=== PATIENT | male | born 1950 | race Caucasian/White ===

== ENCOUNTER 2018-06-20 12:25 | Inpatient (IN) | payer BC, OTHER ==
[~2018-06-20] VITALS: Ht 175.3 cm; Wt 59.0 kg
[2018-06-20] MEDS ORDERED: IRBE1TAB41 PO (13:37)
[2018-06-20] MEDS ORDERED: FINA1TAB PO (13:38)
[2018-06-20] MEDS ORDERED: SILD100T PO (13:39)
[2018-06-20] MEDS ORDERED: VALA500T34 PO (13:51)
[2018-06-20] MEDS ORDERED: METR45CR2 TP (13:52)
[2018-06-20] MEDS ORDERED: MULT1TAB73 PO (13:53)
[2018-06-20] MEDS ORDERED: BETA15CR4 TP (13:54)
[2018-06-20] MEDS ORDERED: ACET-73 PO (13:55)
--- NOTE | 2018-06-20 14:30 | NUR ---
Pre-admission note: assessed pt in intake office pt accompanied by family is the main source of information. pt appears to be moderately withdrawing.pt's partner Ani verbalized he is not telling you all the information in regards to admission assessment. pt with increased hr of 101 and b/p of 159/96. explained unit protocols and procedures and pt verbalized understanding.
[2018-06-20] MEDS ORDERED: THIAMINE HCL 200 MG/2 ML VIAL IM ONE (15:00)
[2018-06-20] MEDS ORDERED: DIAZEPAM 5 MG TABLET PO PRN (15:00)
[2018-06-20] MEDS ORDERED: LORAZEPAM 2 MG/1 ML VIAL IM PRN (15:00)
[2018-06-20] MEDS ORDERED: MAGNESIUM HYDROXIDE 30 ML LIQUID UDC PO PRN (15:00)
[2018-06-20] MEDS ORDERED: ONDANSETRON 4 MG/2 ML VIAL IM PRN (15:00)
[2018-06-20] MEDS ORDERED: DIAZEPAM 10 MG TABLET PO PRN ×2 (15:00)
[2018-06-20] MEDS ORDERED: ACETAMINOPHEN 325 MG TABLET PO PRN (15:00)
[2018-06-20] MEDS ORDERED: LOPERAMIDE HCL 2 MG CAPSULE PO PRN ×2 (15:00)
[2018-06-20] MEDS ORDERED: MAG HYDROX/AL HYDROX/SIMETH 30 ML LIQUID UDC PO PRN (15:00)
[2018-06-20] MEDS ORDERED: ONDANSETRON ODT 4 MG TAB.RAPDIS SL PRN (15:00)
--- NOTE | 2018-06-20 15:00 | NUR ---
ADMISSION Patient arrived to the unit at 1342, admitting DX: Etoh/BZO withdrawal. Patient was seen at intake office by Charge Nurse, RN at 1320. Patient body search and body assessment completed. 68 year old male arrived to the unit, orientation to unit and to room provided, education sculpture conservator light use was provided. Patient appears disheveled, and unkempt. Noted with flushed face and clammy skin. Appears fidgety, restless, tremulous and anxious. Has a flat affect, poor eye contact. Has anxious mood. Patient is alert and oriented x4. Patient reports here to detox off of alcohol, has been consuming on a daily basis and unable to quit on his own, per patient reports in the past when he has tried he experiences: increase cravings, anxiety, shaking, and agitation, fatigue, and emotional volatility, Patient denies any history of alcohol withdrawal induced seizure. Denies having experiencing any black outs, but as per family members during pre admission, Clifford (bother) and Ani (partner) verbalized he has experienced many blackouts. Patient denied any episodes of suicide ideations/attempt, but as per Ani (partner) approximately 2-3 months ago, patient tried to jump off a building Partner was asked if any medical attention was sought, per Ani, they did not seek any medical or psychiatric help. Patient is currently denying any Suicide ideations at this time, will continue to monitor closely. Patient verbalized I mostly drink to be social, I never drink alone, patient reports he began drinking because of peer pressure, hanging around with my friends when he was in his twenties. Patient reports was able to stop drinking in the beginning but after that it become a problem to stop on his own, reports that for many years he has been drinking about 4-5 times a week about 5 mixed vodka drinks equivalent to 225ml of vodka. Patient reports he decided to get sober today because his brother and boyfriend encouraged him to do it, and he decided that it was time for him to quit drinking, verbalized its been in the plan, I want to be sober Patient reports stopping on his own is tough because I get a lot of cravings, I cant do it on my own, sometimes when I wake up I do notice my hands get shaky, I feel anxious and agitated Patient reports that when he has attempted to get sober on his own in the past he is unable to because of high levels of stress and cravings. Reports his family and partner are a great support system for him. Reports that drinking has caused a strain in the relationship with his partner because he does not like the fact that he drinks, since his partner does not drink. Reports it has caused many issues. Verbalized I get sad and unhappy at my life because I drink alcohol. Patient reports he has attempted to get sober on his own by going to , was able to stay sober for 1.5 years, approximately two years ago, but then relapsed. Patient reports he has attempted to get sober on his own, approximately twice, but relapses again, verbalized I am ready to do this; I am ready to be happy and live a happy life. After detox patient reports he plans to attend a residential treatment, plans on going to meetings, verbalized that he is willing to not drink alcohol any more to maintain his sobriety. Patient reports this is his first time in treatment. Substance Use history: 1. etoh- vodka (5 mixed drinks) equivalent to: 225ml daily for the past 6 months, but reports he has been drinking approximately on/off for years 225ml of vodka approximately 3-4x/week. Last drink 06/20/2018 45ml at 0930. (Per Isamar, patients partner: Patient is drinking way more, than what he is reporting) MD notified. 2. BZO- Klonopin 2 mg PO HS for sleep. Per patient has been taking for the past year, last took 2mg on 06/19/2018 prior to bed time. PMH/Medications: Insomnia diagnosed 2017- Patient takes: Klonopin 2mg PO QHS. Hypertension diagnosed: in 2016 Patient takes: Irbesartan/Hctz 300-12.5mg one tab daily. Anxiety diagnosed: in 2017 Erectile Dysfunction- Patient takes Sildenafil 100mg PO PRN. Facial Rosacea- patient takes metronidazole cream as needed. On/off chest redness/irritation- Patient uses bethametason diproprionate (currently no active redness/irritation) Hair Loss- Patient takes Finasteride 1 tab daily. On/Off generalized body rash- Valtrex 2 tabs daily. (Currently no active body rash) Past surgical history: Wrist fracture 20 years ago. Skin Integrity: Patient skin noted with 14 stitches on left elbow area, appears intact, no gapping noted no s/sx of bleeding/infx noted. Per patient during moving from one house to another, he reports he fell off of a ladder, per patient denies being intoxicated when the accident occurred, but was drinking the night before. Per patient stitches to be removed Saturday. Currently patient in room, Dr. Yu was notified of new admission, patient seen and examined by Dr. Yu and was seen and examined by Dr. morrison. Patient presenting the following s/sx of withdrawal: generalized discomfort, increase emotional amplitude, increase anxiety, and tremors, patient with admitting ciwa score of: 8. Patients safety measures are in place. Call light within reach, fall and seizure precautions in place. Bed in low position, will continue to monitor closely. Addendum: 06/20/18 at 1835 by LICHA HUGHES LVN Admitting vital signs: bp: 159/91 hr: 101 r: 18 t: 98.6 o2sat: 97% room air. 0/10 pain level.
[2018-06-20 15:04] LABS: *AMPHETAMINE, URINE NEGATIVE (NEGATIVE); *BARBITURATE, URINE NEGATIVE (NEGATIVE); *CANNABINOID, URINE NEGATIVE (NEGATIVE); *COCCAINE, URINE NEGATIVE (NEGATIVE); *OPIATE, URINE NEGATIVE (NEGATIVE); *PHENCYCLIDINE SCREEN,URINE NEGATIVE (NEGATIVE)
--- NOTE | 2018-06-20 15:30 | NUR ---
Admission Orders Per Dr. Yu, patient to continue under close observation. patient has PRN Valium as needed for s/sx of withdrawal. Patient to begin a 5 day Valium taper tomorrow morning.
[2018-06-20 15:40] LABS: BASOPHILS % (AUTO) 0.3 % (0.0-2.0); EOSINOPHILS % (AUTO) 0.5 % (0.0-7.0); HEMOGLOBIN 13.4 g/dL (12.5-16.3); LYMPHOCYTES % (AUTO) 16.5 % (20.5-51.5); MEAN CORPUSCULAR HEMOGLOBIN 36.9 uug (23.8-33.4); MEAN CORPUSCULAR HGB CONC 34 g/dL (32.5-36.3); MEAN CORPUSCULAR VOLUME 107.1 fL (73.0-96.2); MONOCYTES % (AUTO) 16.5 % (0.0-11.0); NEUTROPHILS # (AUTO) 3.9 K/uL (1.8-8.9); NEUTROPHILS % (AUTO) 66.2 % (38.5-71.5); PLATELET COUNT (AUTO) 227 K/uL (152-348); RED BLOOD CELL COUNT(AUTO) 3.64 MIL/uL (4.06-5.63); WHITE BLOOD COUNT (AUTO) 5.9 K/uL (3.6-10.2)
[2018-06-20 15:55] LABS: ALANINE AMINOTRANSFERASE 94 U/L (16-63); ALKALINE PHOSPHATASE 69 U/L (50-136); AMYLASE 63 U/L (25-115); ASPARTATE AMINOTRANSFERASE 87 U/L (15-37); BILIRUBIN,TOTAL 0.7 mg/dL (0.2-1.0); CARBON DIOXIDE 27 mmol/L (21-32); CHLORIDE 100 mmol/L (98-107); CREATININE 0.8 mg/dL (0.6-1.3); GLUCOSE 96 mg/dL (74-106); LIPASE 132 U/L (73-393); MAGNESIUM 1.8 mg/dL (1.8-2.4); POTASSIUM 4.5 mmol/L (3.5-5.1); TOTAL PROTEIN, SERUM 7.7 g/dL (6.4-8.2); UREA NITROGEN, BLOOD 15 mg/dL (7-18)
[2018-06-20 16:06] LABS: ETHANOL < 3 MG/DL (0-0)
[2018-06-20 16:35] VITALS: BP 158/90
--- NOTE | 2018-06-20 16:37 | NUR ---
PRN VALIUM Patient presenting the following s/sx of withdrawal: generalized discomfort, increase emotional amplitude, increase anxiety, and tremors, patient with admitting ciwa score of: 8, Administered Valium 5 mg PO as per MD orders. Will monitor effectiveness of medication, current vital signs BP: 158/90 HR: 98 T: 98.4 R: 16 O2 SAT: 97% RA.
--- NOTE | 2018-06-20 17:37 | NUR ---
VALIUM REASSESSMENT Patient reports feeling less tremulous and a decrease in anxiety, current ciwa score of: 6, encouraged patient to increase PO fluid intake as tolerated, will continue to monitor.
[2018-06-20 18:27] LABS: BAND % (MANUAL) 4 % (0-10); LYMPHOCYTES % (MANUAL) 16 % (20-40); MONOCYTES % (MANUAL) 16 % (2-10); NEUTROPHILS % (MANUAL) 64 % (42-75)
--- NOTE | 2018-06-20 19:10 | NUR ---
END OF SHIFT Patient endorsed to shift production supervisor nurse, all pertinent information was discussed. patient admitted today during shift, continues under close observation. patient received PRN Valium 5 mg PO for ciwa score of: 8, current ciwa score of: 6.
--- NOTE | 2018-06-20 19:30 | NUR ---
START OF SHIFT Pt is a 68 y/o male admitted on 06/20/18 for ETOH and benzo withdrawal. Pt has PRN Valium tonight and 5 day Valium taper that starts tomorrow. Last CIWA 6 and PRN Valium 5 mg administered during day shift. Upon assessment pt presents with anxiety, tremors, worried, flushed skin, flat affect, rapid speech, restlessness, elevated BP, difficulty falling and staying asleep, and is fearful about being able to sleep. Medications due. Safety measures in place. Call light within reach. Will continue to monitor.
[2018-06-20 20:00] VITALS: BP 172/102
--- NOTE | 2018-06-20 20:00 | NUR ---
CIWA 12 Pt presents with anxiety, tremors, worried, flushed skin, flat affect, rapid speech, restlessness, elevated BP, difficulty falling and staying asleep, and is fearful about being able to sleep.
[2018-06-20] MEDS: CLONIDINE HCL 0.1 MG TABLET PO PRN (20:21)
--- NOTE | 2018-06-20 20:21 | NUR ---
PRN CLONIDINE ADMINISTRATION BP 172/102 and HR 72, orders to give Clonidine. Pt presents with anxiety. Safety measures in place. Call light within reach. Will continue to monitor.
[2018-06-20] MEDS ORDERED: METRONIDAZOLE TOP SCH (21:00)
[2018-06-20 21:21] VITALS: BP 136/87
--- NOTE | 2018-06-20 21:21 | NUR ---
PRN CLONIDINE REASSESSMENT BP 136/87 and HR 74. Pt has persistent anxiety r/t worrying about not being able to sleep. Safety measure in place. Call light within reach. Will continue to monitor.
[2018-06-20] MEDS: TRAZODONE 100 MG TABLET PO PRN (21:48)
--- NOTE | 2018-06-20 21:48 | NUR ---
PRN VALIUM AND TRAZODONE ADMINISTRATION CIWA 13. Pt presents with anxiety, restlessness, flushed skin, tremors. Pt requests Trazodone for difficulty falling and staying asleep. Safety measures in place. Call light within reach. Will continue to monitor.
--- NOTE | 2018-06-20 22:48 | NUR ---
PRN VALIUM AND TRAZODONE REASSESSMENT CIWA 11. Pt has mild improvement in restlessness. Pt appears more fatigued and relaxed. Safety measures in place. Call light within reach. Will continue to monitor.
[2018-06-21] VITALS: BP 146/93
--- NOTE | 2018-06-21 | NUR ---
CIWA DEFERRED Pt laying in bed with eyes closed, CIWA deferred, to be assessed when pt is awake per orders. Respirations even and unlabored. Safety measures in place. Call light within reach. Will continue to monitor.
[2018-06-21 04:00] VITALS: BP 148/94
--- NOTE | 2018-06-21 07:07 | NUR ---
END OF SHIFT Pt is a 68 y/o male admitted on 06/20/18 for ETOH and benzo withdrawal. Pt has PRN Valium and starts a 5 day Valium taper today. Pt presented with anxiety, tremors, worry affect, flushed skin, flat affect, rapid speech, restlessness, elevated BP, difficulty falling and staying asleep, and is fearful about being able to sleep. Metronidazole gel for face at 2100 refused, pt stated, "I usually take that in the morning." Scheduled medications and PRN Valium 10 mg, Trazodone 100 mg, and Clonidine administered, effective in S/S of withdrawal AEB CIWA 13 lowered to CIWA 11 during shift. Pt slept 6 hours. Intake 1591 ml, void x 2, stool x 1. Safety measures in place. Call light within reach. Pts needs have been met. Endorsed to day shift nurse.
--- NOTE | 2018-06-21 07:38 | NUR ---
BEGINNING OF SHIFT Patient endorsement report received from family resource management professor nurse, all pertinent information was discussed. Patient admitted yesterday with admitting dx: etoh withdrawal. patient continues under close observation and is scheduled to begin a 5 day Valium taper as ordered. Per family resource management professor patient with poor sleep and difficulty staying asleep. As per family resource management professor patient slept for 6 hours. Patient with last CIWA score of: 11. Received PRN: Trazodone, and Valium, per family resource management professor medications effective. Patient currently in room with eyes closed respirations are even and unlabored. Responsive to verbal stimuli. Will educate patient regarding plan of care for the day and medication regimen. Safety measures are in place. call light with in reach, will continue to monitor.
[2018-06-21 08:21] VITALS: BP 134/94
[2018-06-21] MEDS ORDERED: Medication Not On Formulary EA (Irbesartan/Hydrochlorothiazide (Avalide 150-12.5 Mg Tabl PO SCH (09:00)
[2018-06-21] MEDS ORDERED: VALACYCLOVIR HCL 500 MG TABLET PO SCH (09:00)
[2018-06-21] MEDS ORDERED: FINASTERIDE PO SCH (09:00)
[2018-06-21] MEDS ORDERED: 5 DAY TAPER VALIUM-SERENITY PROTOCOL PO PRN (09:00)
[2018-06-21] MEDS ORDERED: Medication Not On Formulary EA (Multivitamins (Multivitamin) 1 TAB) PO SCH (09:00)
[2018-06-21] MEDS ORDERED: TUBERCULIN,PURIF.PROT.DERIV. 5 TU/0.1 ML TEST ID ONE (09:00)
--- NOTE | 2018-06-21 09:00 | NUR ---
CIWA ASSESSMENT Noted presented with the following s/sx of withdrawal: gross tremors, increase anxiety, agitation, fidgety, restless, generalized discomfort, increase emotional amplitude and emotional volatitily, patient with last CIWA score of: 15.
[2018-06-21] MEDS: FOLIC ACID 1 MG TABLET PO SCH (09:08)
[2018-06-21] MEDS: MULTIVITAMINS,THERAPEUTIC TABLET PO SCH (09:08)
[2018-06-21] MEDS: THIAMINE HCL 100 MG TABLET PO SCH (09:08)
[2018-06-21] MEDS: DIAZEPAM 10 MG TABLET PO SCH ×4 (09:08→21:42)
[2018-06-21] MEDS: HYDROCHLOROTHIAZIDE PO SCH (09:09)
[2018-06-21] MEDS: FINASTERIDE 1 MG PO SCH (09:09)
[2018-06-21] MEDS: NEOMY/BACITRAC/POLYMI OINT 28.35 GM TUBE TOP SCH (09:09)
[2018-06-21] MEDS: IRBESARTAN PO SCH (09:09)
--- NOTE | 2018-06-21 13:00 | NUR ---
CIWA ASSESSMENT Patient continues to exhibit the following s/sx of withdrawal: gross tremors, increase anxiety, agitation, fidgety, restless, generalized discomfort, increase emotional amplitude and emotional volatitily, patient with last CIWA score of: 15.
[2018-06-21 13:17] VITALS: BP 168/107
[2018-06-21] MEDS: CLONIDINE HCL 0.1 MG TABLET PO PRN ×2 (13:19→20:51)
[2018-06-21] MEDS: MIRALAX 17 GM POWD.PACK PO PRN (13:30)
--- NOTE | 2018-06-21 13:30 | NUR ---
PRN MIRALAX Patient reported constipation, administered miralax as ordered, will monitor effectiveness of medication.
--- NOTE | 2018-06-21 14:19 | NUR ---
CLONIDINE REASSESSMENT Medication effective, decrease in BP, BP: 148/88 HR: 82. Will continue to monitor.
--- NOTE | 2018-06-21 17:00 | NUR ---
CIWA ASSESSMENT still presenting with the following s/sx of withdrawal: gross tremors, increase anxiety, agitation, fidgety, restless, generalized discomfort, increase emotional amplitude and emotional volatitily, patient with last CIWA score of: 15. Will continue to monitor.
[2018-06-21 17:11] VITALS: BP 146/89
--- NOTE | 2018-06-21 17:14 | NUR ---
PRN CLONIDINE Patient with BP: 168/107 HR: 74. Administered clonidine 0.1mg PO as ordered, will monitor effectiveness. Addendum: 06/21/18 at 1741 by LICHA HUGHES LVN medication administered at 1319
--- NOTE | 2018-06-21 17:43 | NUR ---
MIRALAX REASSESSMENT Medication effective, patient had one bowel movement.
--- NOTE | 2018-06-21 18:44 | NUR ---
END OF SHIFT 308 Patient alert and oriented x4, continues under close observation, patient with admitting Dx: etoh/bzo withdrawal. Patient began a 5 day Valium taper during shift, day 1 of taper. Monitored s/sx of withdrawal closely. During shift patient presented with the following s/sx of withdrawal: gross tremors, increase anxiety, agitation, fidgety, restless, generalized discomfort, increase emotional amplitude and emotional volatility, patient with last CIWA score of: 15, MD aware of CIWA scores throughout shift. Patient received PRN: Miralax for constipation, medication effective patient had bowel movement. Patient noted with depressed affect and anxious mood. Patient encouraged diversional activities to alleviate anxiety. Patient has a flat affect at times, noted preoccupied, encouraged to attend group therapies/sessions to learn new coping skills to prevent relapse. Encouraged to socialize with others. Patient with inability to perform ADLs without prompting, Patient encouraged maintenance of personal space and self grooming. Patient endorsed to night nurse nurse, all pertinent information was discussed
--- NOTE | 2018-06-21 19:46 | NUR ---
START OF SHIFT NOTE Rcvd report from outgoing nurse. Pt is a 68 y/o male A/O to person, place, time, and purpose. Pt was admitted for medically supervised withdrawal from ETOH. Pt has a past medical h/o HTN. Pt has been presenting w/ anxiety, restlessness, sweats, flat affect, and depressed mood. Pt denies S/I or H/I. Pt states "I'm feeling great and ready for the next step". PRN Clonidine given for elevated BP of 166/106. PRN Miralax given for abd cramping and constipation. Last CIWA 15 @ 1600. Call light is within reach. Pt will ontinue to be monitored and needs met.
[2018-06-21 20:00] VITALS: BP 166/102
--- NOTE | 2018-06-21 20:00 | NUR ---
CIWA ASSESSMENT CIWA 13. Pt has been presenting w/ anxiety, restlessness, sweats, flat affect, and depressed mood. V/S: T:98.7, P:70, RR:14, SPO2:100, BP:166/72.
--- NOTE | 2018-06-21 20:51 | NUR ---
PRN CLONIDINE ADMINISTRATION Clonidine 0.1mg given for elevated BP of 166/102. Pt denies light headedness/dizziness, vision changes, and SOB. Will reassess pt in 1 hr.
[2018-06-21] MEDS: TRAZODONE 100 MG TABLET PO PRN (21:41)
--- NOTE | 2018-06-21 21:41 | NUR ---
PRN TRAZODONE AND BENADRYL ADMINISTRATION Trazodone 100mg and Benadryl 50mg given for insomnia. Pt c/o of inability to sleep. Will reassess pt in 1 hr.
[2018-06-21] MEDS: diphenhydrAMINE 50 MG CAPSULE PO PRN (21:42)
--- NOTE | 2018-06-21 21:51 | NUR ---
PRN CLONIDINE REASSESSMENT Pt's BP 142/94. Medication noted effective. Will continue to monitor pt.
[2018-06-21] MEDS: IBUPROFEN 600 MG TABLET PO PRN (22:33)
--- NOTE | 2018-06-21 22:33 | NUR ---
PRN MOTRIN ADMINISTRATION Motrin 600mg given for 5/10 back pain. Pt states the bed is very uncomfortable, "I've tried moving it into different positions, with the legs and the head of the bed, nothing works". Will reassess pt in 1 hr.
--- NOTE | 2018-06-21 22:41 | NUR ---
PRN TRAZODONE AND BENADRYL REASSESSMENT Pt in bed and respirations are unlabored and even. Pt still c/o inability to sleep. Pt also c/o back pain 03/13. Will administer Motrin.
--- NOTE | 2018-06-21 23:33 | NUR ---
PRN MOTRIN REASSESSMENT Pt is in bed w/ his eyes closed. Pt's respirations are unlabored and even.
--- NOTE | 2018-06-22 | NUR ---
CIWA DEFERRED Pt is in bed w/ his eyes closed. Pt's respirations are unlabored and even.
--- NOTE | 2018-06-22 04:01 | NUR ---
CIWA DEFERRED Pt is in bed w/ his eyes closed. Pt's respirations are unlabored and even.
--- NOTE | 2018-06-22 07:02 | NUR ---
END OF SHIFT NOTE Endorsed pt to oncoming nurse. Pt is a 68 y/o male A/O to person, place, time, and purpose. Pt was admitted for medically supervised withdrawal from ETOH. Pt has a past medical h/o HTN. Pt has been presenting w/ anxiety, restlessness, sweats, flat affect, and depressed mood. Pt states "I'm feeling great and ready for the next step". PRN Clonidine given for elevated BP of 166/102, noted effective. PRN Motrin given for back pain, noted effective. PRN Trazodone and Benadryl given for sleep, noted effective. Pt slept for 8.25hrs. Last CIWA 13 @ 1999. Call light is within reach.
--- NOTE | 2018-06-22 07:30 | NUR ---
start of shift note; Received report from night nurse. Patient is a 68 year old male admitted on 06/20/18 for ETOH and Benzodiazepine Withdrawal. Patient was placed on 5 day Valium taper. Patient is AOx4, patient has poor eye contact , patient has difficulty concentrating, easily distracted but remained cooperative. Patient appears anxious, agitated, complaining of muscle aches, abdominal cramps and intermitted sweats, tremors noted. Educated patient regarding the importance of compliance to treatment and medication regime, verbalized understanding. Encouraged patient to participate in group activities and therapies and develop new coping skills. All safety measures secured. Will continue to monitor patient.
[2018-06-22 08:00] VITALS: BP 133/82
--- NOTE | 2018-06-22 08:00 | NUR ---
CIWA assessment; Patient is AOx4, patient has poor eye contact , patient has difficulty concentrating, easily distracted but remained cooperative. Patient's last CIWA is 13 manifested by anxiety, agitated, complaining of muscle aches, abdominal cramps and intermitted sweats, tremors noted. Patient was placed on Valium taper to help reduce withdrawal symptoms.
[2018-06-22] MEDS: THIAMINE HCL 100 MG TABLET PO SCH (09:09)
[2018-06-22] MEDS: DIAZEPAM 10 MG TABLET PO SCH ×3 (09:09→21:30)
[2018-06-22] MEDS: FOLIC ACID 1 MG TABLET PO SCH (09:09)
[2018-06-22] MEDS: MULTIVITAMINS,THERAPEUTIC TABLET PO SCH (09:09)
[2018-06-22] MEDS: NEOMY/BACITRAC/POLYMI OINT 28.35 GM TUBE TOP SCH (09:10)
[2018-06-22] MEDS: HYDROCHLOROTHIAZIDE PO SCH (09:10)
[2018-06-22] MEDS: METRONIDAZOLE TOP SCH (09:10)
[2018-06-22] MEDS: IRBESARTAN PO SCH (09:10)
[2018-06-22] MEDS: FINASTERIDE 1 MG PO SCH (09:10)
[2018-06-22] MEDS ORDERED: TRET20GE2 TP (11:10)
[2018-06-22 12:00] VITALS: BP 133/90
--- NOTE | 2018-06-22 12:00 | NUR ---
CIWA assessment; Patient is AOx4, patient has poor eye contact , patient has difficulty concentrating, easily distracted but remained cooperative. Patient's CIWA remains at 13 manifested by anxiety, agitated, complaining of muscle aches, abdominal cramps and intermitted sweats, tremors noted. Patient was placed on Valium taper to help reduce withdrawal symptoms.
[2018-06-22] MEDS: MIRALAX 17 GM POWD.PACK PO PRN (13:04)
--- NOTE | 2018-06-22 13:04 | NUR ---
PRN medication; Patient is complaining of constipation, PRN Miralax 17 GM given to help prevent further constipation. Will continue to monitor patient for effectiveness of medication.
--- NOTE | 2018-06-22 13:16 | NUR ---
Therapist prompted client to attend group therapy sessions twice daily.
--- NOTE | 2018-06-22 14:04 | NUR ---
Re-assessment; Patient reported effectiveness of Miralax, no further constipation noted.
[2018-06-22 17:06] VITALS: BP 138/94
--- NOTE | 2018-06-22 17:59 | NUR ---
CIWA assessment; Patient is AOx4, patient has poor eye contact , patient has difficulty concentrating, easily distracted but remained cooperative. Patient's CIWA is 12 manifested by anxiety, agitated, complaining of muscle aches, abdominal cramps and intermitted sweats, tremors noted. Medications were effective in reducing withdrawal symptoms.
--- NOTE | 2018-06-22 18:06 | NUR ---
End of shift note; Patient is AOX4, presented with anxiety, agitation, complaining of muscle aches, abdominal cramps and intermittent sweats, tremors noted. Patient's last CIWA score is 12 at 1600. Patient remained compliant with treatment plan and medication regime. Medications were effective in reducing withdrawal symptoms. Patient participated in group activities and therapies. Patient received PRN Miralax for constipation noted to be effective. Patient is on fall and seizure precaution. All safety measures secured. Met all needs.
--- NOTE | 2018-06-22 19:30 | NUR ---
START OF SHIFT Pt is a 68 y/o male admitted for ETOH and benzo withdrawal. Pt continues on 5 day Valium taper as ordered and is tolerating well.Pt received in room,A/A/O X 4. Last CIWA 12 at 1600.PRN Miralax was given and was effective.Pt has been med compliant and has been attending groups. Upon assessment pt presents with anxiety,bilateral hand tremors, rapid speech, c/o having difficulty falling and staying asleep, and is fearful about being able to sleep,said " I would like to take my medications later so I can sleep through the night". Medications due shortly. Safety measures in place. Call light within reach. Will continue to monitor.
[2018-06-22 20:00] VITALS: BP 157/100
--- NOTE | 2018-06-22 20:00 | NUR ---
CIWA ASSESSMENT CIWA=10.Pt s anxious,restless,somewhat fidgety,worried about his blood pressure and sleeping.Deep breathing and relaxation techniques encouraged,will continue to monitor.
[2018-06-22] MEDS: CLONIDINE HCL 0.1 MG TABLET PO PRN (20:01)
--- NOTE | 2018-06-22 20:01 | NUR ---
PRN CLONIDINE PRN Clonidine given for B/P 157/100 and increased anxiety; will monitor for effectiveness.
--- NOTE | 2018-06-22 21:00 | NUR ---
CLONIDINE REASSESSMENT CLONIDINE IS EFFECTIVE IN REDUCING ANXIETY/B/P = 142/83.
[2018-06-22] MEDS: diphenhydrAMINE 50 MG CAPSULE PO PRN (21:30)
[2018-06-22] MEDS: IBUPROFEN 600 MG TABLET PO PRN (21:30)
[2018-06-22] MEDS: TRAZODONE 100 MG TABLET PO PRN (21:32)
--- NOTE | 2018-06-22 21:32 | NUR ---
PRN MEDS Pt c/o back pain and insomnia; prn Motrin as ordered given for back pain 05/13 an prn Benadryl and trazodone given as ordered for c/o insomnia.Pt stated that he wants to take both Benadryl and trazodone together to help him sleep; will monitor for effectiveness.
--- NOTE | 2018-06-22 22:30 | NUR ---
PRN F/U Pt is calm and resting in bed with eyes closed; breathing is even and non labored,no c/o pain or s/s of distress noted;appears to be asleep; will continue to monitor.
[2018-06-23] VITALS: BP 130/88
--- NOTE | 2018-06-23 | NUR ---
CIWA DEFERRED Pt is calm and resting in bed with eyes closed; breathing is even and non labored,no c/o pain or s/s of distress noted;appears to be asleep;V/S are stable, CIWA deferred due to pt being asleep; will continue to monitor.
--- NOTE | 2018-06-23 04:00 | NUR ---
CIWA DEFERRED Pt is calm and resting in bed with eyes closed; breathing is even and non labored,no c/o pain or s/s of distress noted;appears to be asleep; CIWA deferred due to pt being asleep; v/s refused, will continue to monitor.
--- NOTE | 2018-06-23 06:43 | NUR ---
END OF SHIFT Pt is a 68 y/o male admitted for ETOH and benzo withdrawal. Pt continues on 5 day Valium taper as ordered and is tolerating well.Pt is A/O X 4. Last CIWA 10 at 1999.Pt has been med compliant . PRN meds Clonidine ,Motrin and Benadryl were given and were effective. Dressing on left elbow is dry and intact; no discharge or s/s of infection noted. Pt slept well all night, slept 7 hours,fluid intake was 500 mls,voided x 1,0 BM.Safety measures in place. Call light within reach. Will continue to monitor.
--- NOTE | 2018-06-23 07:45 | NUR ---
START OF SHIFT NOTE Received report from night nurse 68 year old male admitted for ETOH withdrawal and continues with Valium taper tolerating well. Per endorsement patient was given PRN Clonidine, Motrin, Benadryl, Trazodone effective per night nurse, patient slept for 7 hours, last CIWA-10. Received patient alert oriented x4, blunt facial expression, easily distracted, anxious, agitated, bilateral hand tremors. Patient is due for scheduled medications. All safety measures in place, call light within reach. Will cont to monitor.
[2018-06-23 08:00] VITALS: BP 131/80
[2018-06-23] MEDS: DIAZEPAM 5 MG TABLET PO SCH ×4 (08:27→21:17)
[2018-06-23] MEDS: MULTIVITAMINS,THERAPEUTIC TABLET PO SCH (08:27)
[2018-06-23] MEDS: FOLIC ACID 1 MG TABLET PO SCH (08:27)
[2018-06-23] MEDS: THIAMINE HCL 100 MG TABLET PO SCH (08:27)
--- NOTE | 2018-06-23 08:27 | NUR ---
CIWA ASSESSMENT CIWA score noted -12, Patient presented with anxiety, agitation, restless, bilateral hand tremors, sweats. Patient is given schedule medications. Will cont to monitor.
[2018-06-23] MEDS: NEOMY/BACITRAC/POLYMI OINT 28.35 GM TUBE TOP SCH (08:28)
[2018-06-23] MEDS: FINASTERIDE 1 MG PO SCH (08:28)
[2018-06-23] MEDS: IRBESARTAN PO SCH (08:28)
[2018-06-23] MEDS: HYDROCHLOROTHIAZIDE PO SCH (08:28)
[2018-06-23 08:29] LABS: BILIRUBIN,DIRECT 0.2 mg/dL (0.0-0.2); BILIRUBIN,TOTAL 0.6 mg/dL (0.2-1.0); TOTAL PROTEIN, SERUM 7.2 g/dL (6.4-8.2)
[2018-06-23] MEDS: METRONIDAZOLE TOP SCH (08:32)
[2018-06-23 12:00] VITALS: BP 161/101
--- NOTE | 2018-06-23 12:11 | NUR ---
CIWA ASSESSMENT CIWA score noted -14, Patient stated increased in anxiety, agitation, restless, bilateral hand tremors, sweats. Patient was given schedule medications and educated patient to use distraction such as reading books, watching TV, coloring books, patient verbalized understanding. Will cont to monitor.
[2018-06-23] MEDS: CLONIDINE HCL 0.1 MG TABLET PO PRN ×2 (12:16→21:17)
--- NOTE | 2018-06-23 12:16 | NUR ---
PRN CLONIDINE Patient blood pressure noted 161/101. PRN Clonidine 0.1mg PO was given as ordered. Will cont to monitor.
--- NOTE | 2018-06-23 13:16 | NUR ---
CLONIDINE REASSESSMENT Blood pressure noted 122/80 Clonidine was effective.
[2018-06-23 16:00] VITALS: BP 148/90
--- NOTE | 2018-06-23 16:29 | NUR ---
CIWA ASSESSMENT CIWA score noted -12. Patient continues to presented s/s of withdrawal such as anxiety, agitation, restless, bilateral hand tremors, sweats. Patient was given his scheduled medications. Will cont to monitor.
--- NOTE | 2018-06-23 19:08 | NUR ---
END OF SHIFT NOTE Gave report to night nurse, 68 year old male admitted for ETOH withdrawal and continues with Valium taper tolerating well. Patient presented with anxiety, agitation, restless, labile facial expression, anhedonia, unkempt room, diaphoretic, bilateral hand tremors noted. patient was given scheduled medications and PRN Clonidine 0.1mg PO noted to be effective. Encourage PO fluids as tolerated. Last CIWA score was 12. Encourage patient to attend groups activities to learn new coping skills. All safety measures in place, call light within reach. Patient endorse to night nurse in stable condition.
--- NOTE | 2018-06-23 19:30 | NUR ---
START OF SHIFT Pt is a 68 y/o male admitted for ETOH and benzo withdrawal. Pt continues on 5 day Valium taper as ordered and is tolerating well.Pt received in room,A/A/O X 4. Last CIWA 12 at 1600.PRN Clonidine 0.1 mg PO was given and was effective.Pt has been med compliant and has been attending groups.Pt presents with anxiety,bilateral hand tremors,superficially bright and pleasant upon approach,remains focused on insomnia issue like the previous night,said he has difficulty falling and staying asleep.Although he slept 7 hrs last night,he did c/o having difficulty going back to sleep after he was woken up for v/s at midnight,requested not to be woken up for v/s if he is sleeping. Medications due shortly. Safety measures in place. Call light within reach. Will continue to monitor.
[2018-06-23 20:00] VITALS: BP 156/93
[2018-06-23] MEDS: IBUPROFEN 600 MG TABLET PO PRN (21:17)
[2018-06-23] MEDS: TRAZODONE 100 MG TABLET PO PRN (21:17)
[2018-06-23] MEDS: diphenhydrAMINE 50 MG CAPSULE PO PRN (21:17)
--- NOTE | 2018-06-23 21:17 | NUR ---
PRN MEDS PRN CLONIDINE 0.1 MG PO GIVEN FOR B/P 156/93.PRN MOTRIN GIVEN ORDERED FOR C/O BACK ACHE 03/13.PRN BENADRYL 50 MG AND TRAZODONE 100 MG PO GIVEN FOR C/ INSOMNIA.WILL MONITOR FOR EFFECTIVENESS.
--- NOTE | 2018-06-23 22:15 | NUR ---
PRN F/U Pt is calm and resting in bed with eyes closed,sleeping soundly;breathing is even and non labored; all safety measures in place,call light within reach; will continue to monitor.
--- NOTE | 2018-06-24 | NUR ---
CIWA DEFERRED Pt is calm and resting in bed with eyes closed; breathing is even and non labored,no c/o pain or s/s of distress noted;appears to be asleep;V/S refused, CIWA deferred due to pt being asleep; will continue to monitor.
--- NOTE | 2018-06-24 06:36 | NUR ---
END OF SHIFT Pt is a 68 y/o male admitted for ETOH and benzo withdrawal. Pt continues on 5 day Valium taper as ordered and is tolerating well.Pt is A/O X 4. Last CIWA 10 at 1999.Midnight and 0400 assessment deferred due to pt being asleep. Pt has been med compliant . PRN meds Clonidine ,Motrin, Trazodone and Benadryl were given and were effective. Dressing on left elbow is dry and intact; no discharge or s/s of infection noted. Pt slept well all night, slept 7 hours,fluid intake was 750 mls,voided x 1, BM x 1.Safety measures in place. Call light within reach. Will continue to monitor.
--- NOTE | 2018-06-24 07:30 | NUR ---
START OF SHIFT NOTE Received report from night nurse 68 year old male admitted for ETOH withdrawal and continues with Valium taper tolerating well. Per endorsement patient was given PRN Clonidine, Motrin, Benadryl, Trazodone effective per night nurse, patient slept for 7 hours, last CIWA-. Received patient alert oriented x4, blunt facial expression, unkempt room, anxious, agitated, bilateral hand tremors, fatigue. Patient is due for scheduled medications. All safety measures in place, call light within reach. Will cont to monitor.
[2018-06-24 08:00] VITALS: BP 125/83
[2018-06-24 08:06] LABS: BILIRUBIN,TOTAL 0.5 mg/dL (0.2-1.0); POTASSIUM 5.1 mmol/L (3.5-5.1); TOTAL PROTEIN, SERUM 7.2 g/dL (6.4-8.2)
[2018-06-24 08:08] LABS: HEPATITIS B SURFACE AG Negative (Negative)
[2018-06-24] MEDS: THIAMINE HCL 100 MG TABLET PO SCH (08:41)
[2018-06-24] MEDS: MULTIVITAMINS,THERAPEUTIC TABLET PO SCH (08:41)
[2018-06-24] MEDS: DIAZEPAM 5 MG TABLET PO SCH ×3 (08:41→21:22)
[2018-06-24] MEDS: FOLIC ACID 1 MG TABLET PO SCH (08:41)
--- NOTE | 2018-06-24 08:41 | NUR ---
CIWA ASSESSMENT CIWA score noted -13, Patient presented with anxiety, agitation, restless, bilateral hand tremors, sweats, light headed. Patient was given his schedule medications. Will cont to monitor.
[2018-06-24] MEDS: FINASTERIDE 1 MG PO SCH (08:42)
[2018-06-24] MEDS: NEOMY/BACITRAC/POLYMI OINT 28.35 GM TUBE TOP SCH (08:43)
[2018-06-24] MEDS: METRONIDAZOLE TOP SCH (08:43)
[2018-06-24] MEDS: HYDROCHLOROTHIAZIDE PO SCH (09:16)
[2018-06-24] MEDS: IRBESARTAN PO SCH (09:16)
[2018-06-24 12:00] VITALS: BP 118/80
[2018-06-24] MEDS: MIRALAX 17 GM POWD.PACK PO PRN (12:11)
--- NOTE | 2018-06-24 12:11 | NUR ---
PRN MIRALAX Patient reported being constipated no BM. Patient provided with on pharmacological intervention with o relief. PRN Miralax was given as ordered. Will cont to monitor and reassess.
--- NOTE | 2018-06-24 13:10 | NUR ---
SUTURE REMOVED Suture removed on Left elbow by MD MARIAN order to continues to put Triple ATB and leave open to air. Picture taken and placed in the chart.
--- NOTE | 2018-06-24 13:11 | NUR ---
MIRALAX REASSESSMENT Per patient Miralax was not effective yet, encourage PO fluids. Will cont to monitor.
--- NOTE | 2018-06-24 14:10 | NUR ---
CIWA ASSESSMENT Patient is alert oriented continues to presented with anxiety, agitation, fatigue, restless, patient stated slightly lower in tremors. CIWA score noted 12. Scheduled medications were given as ordered. Will cont to monitor.
--- NOTE | 2018-06-24 14:15 | NUR ---
PRN OINT Patient reported redness and rash on his chest area and seen by MD Yu. To continues with Betamethasone oint as ordered. Oint was applied as ordered. Skin intact to the site. Will cont to monitor and reassess.
[2018-06-24] MEDS: [UNRECOGNIZED DRUG - OTHER] TOP SCH (14:48)
[2018-06-24] MEDS: TRETINOIN TOP SCH (14:48)
--- NOTE | 2018-06-24 15:15 | NUR ---
OINT REASSESSMENT Patient reported oint was effective redness decreased.
[2018-06-24 16:00] VITALS: BP 147/99
--- NOTE | 2018-06-24 17:00 | NUR ---
CIWA ASSESSMENT CIWA score noted 10. Patient reported lower in anxiety, agitation, fatigue, restless. Will cont to monitor.
--- NOTE | 2018-06-24 19:06 | NUR ---
END OF SHIFT NOTE Gave report to night nurse, patient is /admitted for ETOH withdrawal and continues with Valium taper tolerating well. Patient presented with anxiety, agitation, restless, sad facial, expression, anhedonia, unkempt room, diaphoretic, bilateral hand tremors noted. patient was given scheduled medications and received PRN Betamethasone noted to be effective. Patient was seen by MD with new order to cont home medication Retinol oint was given as ordered. Encourage PO fluids as tolerated. Last CIWA score was 10. Encourage patient to attend groups activities to learn new coping skills. All safety measures in place, call light within reach. Patient endorse to night nurse in stable condition. Addendum: 06/24/18 at 1914 by GERARDO LUNA LVN PRN MIRALAX was ineffective endorse to night nurse to follow up.
--- NOTE | 2018-06-24 19:30 | NUR ---
Start of Shift Note Received a 68 y/o male px, admitted for medically supervised withdrawal from ETOH and Klonopin. Px is placed on 5 day Valium taper started on 06/21/2018. Last reported CIWA 10 by AM shift nurse. During the rounds at 1930, px is awake on bed in fowlers position eating a snack. Px appears anxious. Unfinished drinks noted on top of the bed side table. He stated that his anxiety is 4/10. No complaints made at this moment. Bed on lowest position, side rails up 2x, and call light within reach. We'll continue to monitor.
[2018-06-24 20:00] VITALS: BP 161/96
--- NOTE | 2018-06-24 20:00 | NUR ---
JARED 8 During the rounds. Px appears anxious. He stated that his anxiety is 4/10. We'll continue to monitor.
[2018-06-24] MEDS: IBUPROFEN 600 MG TABLET PO PRN (21:22)
[2018-06-24] MEDS: CLONIDINE HCL 0.1 MG TABLET PO PRN (21:22)
[2018-06-24] MEDS: diphenhydrAMINE 50 MG CAPSULE PO PRN (21:23)
[2018-06-24] MEDS: TRAZODONE 100 MG TABLET PO PRN (21:23)
--- NOTE | 2018-06-24 21:23 | NUR ---
PRN medications Px received Trazodone 100 mg PO and Benadryl 50 mg PO for insomnia. Px requested for Motrin due to the bed is hard and gives him pain during the night. He received Motrin 600 mg PO. Px also received Clonidine 0.1 mg PO for BP= 161/96. To reassess after an hour.
--- NOTE | 2018-06-24 22:25 | NUR ---
Reassessment of BP Px is still awake but ready to sleep at this time. BP= 126/83.
[2018-06-25] VITALS: BP 129/78
--- NOTE | 2018-06-25 | NUR ---
CIWA deferred CIWA deferred due to the px is asleep, to assess if the px is awake per doctor's order. We'll continue to monitor.
[2018-06-25 04:00] VITALS: BP 123/81
--- NOTE | 2018-06-25 04:00 | NUR ---
CIWA deferred CIWA deferred due to the px is asleep, to assess if the px is awake per doctor's order. We'll continue to monitor.
--- NOTE | 2018-06-25 07:05 | NUR ---
End of Shift Note During the shift at 2122, px received Trazodone 100 mg PO and Benadryl 50mg PO for insomnia, Motrin 600 mg PO for pain produced by uncomfortable bed. They were effective. Px oral intake 1000 ml, voided 3x, No BM. Px slept for 7 hours. At 0630, px is asleep on bed in right side lying position. Last CIWA 8. Bed on lowest position, side rails up 2x and call light within reach. Px endorsed top AM shift nurse. Well continue to monitor.
--- NOTE | 2018-06-25 07:22 | NUR ---
Start of Shift Note Pt. is a 68 y/o male admitted for the medically managed withdrawal from ETOH, and Benzodiazepines. Pt. was on a 5 day Valium taper which began on 06/21/20 to manage his withdrawal symptoms. Endorse from previous shift pt. presents with insomnia, restlessness and anxiety. During previous shift pt. received PRN Trazodone, Benadryl, and Motrin to manage withdrawal symptoms.Last CIWA 8. Received pt. in room. Pt. laying in bed with eyes open. Upon approach pt. is pleasant but restless. Pt. presents with flushed facial skin, anxiety and tremors. Encouraged pt. to verbalize concerns and emotions. Educated pt. on treatment plan and medication regiment. Pt. verbalized understanding. Safety measures in place. Will continue to monitor pt.'s behavior for safety.
[2018-06-25 08:00] VITALS: BP 140/86
--- NOTE | 2018-06-25 08:00 | NUR ---
CIWA Assessment CIWA of 8 at this time. Pt. in room and presents with tremors, anxiety and agitation. Will administer pt.'s scheduled medications as ordered. Will continue to monitor pt.'s behavior for safety.
[2018-06-25] MEDS: DIAZEPAM 5 MG TABLET PO SCH ×2 (08:40→21:48)
[2018-06-25] MEDS: FOLIC ACID 1 MG TABLET PO SCH (08:40)
[2018-06-25] MEDS: THIAMINE HCL 100 MG TABLET PO SCH (08:40)
[2018-06-25] MEDS: MULTIVITAMINS,THERAPEUTIC TABLET PO SCH (08:40)
[2018-06-25] MEDS: METRONIDAZOLE TOP SCH (08:41)
[2018-06-25] MEDS: NEOMY/BACITRAC/POLYMI OINT 28.35 GM TUBE TOP SCH (08:41)
[2018-06-25] MEDS: [UNRECOGNIZED DRUG - OTHER] TOP SCH (08:42)
[2018-06-25] MEDS: IRBESARTAN PO SCH (08:42)
[2018-06-25] MEDS: HYDROCHLOROTHIAZIDE PO SCH (08:42)
[2018-06-25] MEDS: TRETINOIN TOP SCH (08:42)
[2018-06-25] MEDS: FINASTERIDE 1 MG PO SCH (08:42)
[2018-06-25] MEDS: MIRALAX 17 GM POWD.PACK PO PRN (09:30)
[2018-06-25 12:00] VITALS: BP 155/93
--- NOTE | 2018-06-25 12:00 | NUR ---
CIWA Assessment CIWA of 7 at this time. Pt. in room and presents with tremors, anxiety and agitation. Pt. compliant with medication regiment. Will continue to monitor pt.'s behavior for safety.
[2018-06-25 16:00] VITALS: BP 150/101
--- NOTE | 2018-06-25 16:00 | NUR ---
CIWA Assessment CIWA of 7 at this time. Pt. in room and presents with tremors, anxiety and agitation. Pt. compliant with treatment plan and medication regiment. Will continue to monitor pt.'s behavior for safety.
--- NOTE | 2018-06-25 19:26 | NUR ---
End of Shift Note Pt. is a 68 y/o male admitted for the medically managed withdrawal from ETOH, and Benzodiazepines. Pt. was on a 5 day Valium taper which began on 06/21/2018 to manage his withdrawal symptoms. Pt. presents with flushed facial skin, restlessness, and anxiety. Behaviorally pt. is complaint with treatment, but entitled and intrusive. PRN Miralax given for constipation. Pt. compliant medication regiment. Last CIWA of [address] Will Endorse pt.'s behavior to oncoming shift.
--- NOTE | 2018-06-25 19:30 | NUR ---
Start of Shift Note Received a 68 y/o male px, admitted for medically supervised withdrawal from ETOH and Klonopin. Px is placed on 5 day Valium taper started on 06/21/2018. Last reported CIWA 7 by AM shift nurse. During the rounds at 1930, px is awake on bed in fowlers position watching TV. Px appears anxious. Unfinished drinks noted on top of the bed side table. He stated that his anxiety is 2/10. Px wanted to get Trazodone, Benadryl and Motrin tonight. Bed on lowest position, side rails up 2x, and call light within reach. We'll continue to monitor.
[2018-06-25 20:00] VITALS: BP 131/89
--- NOTE | 2018-06-25 20:00 | NUR ---
JARED 7 During the rounds. Px appears anxious. He stated that his anxiety is 2/10. Mild bilateral hand tremors noted. We'll continue to monitor.
[2018-06-25] MEDS: diphenhydrAMINE 50 MG CAPSULE PO PRN (21:48)
[2018-06-25] MEDS: IBUPROFEN 600 MG TABLET PO PRN (21:48)
[2018-06-25] MEDS: TRAZODONE 100 MG TABLET PO PRN (21:48)
--- NOTE | 2018-06-25 21:48 | NUR ---
PRN medications As requested, Px received Trazodone 100 mg PO and Benadryl 50 mg PO for insomnia. Px requested for Motrin due to the bed is hard and gives him pain during the night. He received Motrin 600 mg PO. To reassess after an hour.
--- NOTE | 2018-06-25 22:50 | NUR ---
CIWA 7 reassessment Px is ready to sleep at this moment. He appears anxious. He stated that his anxiety is still low at 2/10. Mild bilateral hand tremors noted. We'll continue to monitor.
[2018-06-26] VITALS: BP 130/82
--- NOTE | 2018-06-26 | NUR ---
CIWA deferred CIWA deferred due to the px is asleep, to assess if the px is awake per doctor's order. We'll continue to monitor.
[2018-06-26 04:00] VITALS: BP 122/77
--- NOTE | 2018-06-26 04:00 | NUR ---
CIWA deferred CIWA deferred due to the px is asleep, to assess if the px is awake per doctor's order. We'll continue to monitor.
--- NOTE | 2018-06-26 07:05 | NUR ---
End of Shift Note During the shift at 2148, px received Trazodone 100 mg PO and Benadryl 50mg PO for insomnia, Motrin 600 mg PO for pain produced by uncomfortable bed. They were effective. Px oral intake 800 ml, voided 2x, No BM. Px slept for 7 hours. At 0630, px is asleep on bed in right side lying position. Last CIWA 7. Bed on lowest position, side rails up 2x and call light within reach. Px endorsed top AM shift nurse. Well continue to monitor.
--- NOTE | 2018-06-26 07:22 | NUR ---
BEGINNING OF SHIFT Patient endorsement report received from water resource project manager nurse, all pertinent information was discussed. Admitting Dx: etoh withdrawal. patient continues under close observation, continues with ongoing 5 day Valium taper as ordered. As per water resource project manager patient slept for 7 hours. Patient with last CIWA score of: 7. Received PRN: Trazodone, Motrin, and Benadryl. Per water resource project manager medications effective. Patient currently received awake, alert and oriented x4. Educated patient regarding plan of care for the day and medication regimen, with good verbal understanding. Safety measures are in place. call light with in reach, will continue to monitor.
[2018-06-26 08:49] VITALS: BP 136/91
[2018-06-26] MEDS: METRONIDAZOLE TOP SCH (08:57)
[2018-06-26] MEDS: TRETINOIN TOP SCH (08:59)
[2018-06-26] MEDS: [UNRECOGNIZED DRUG - OTHER] TOP SCH (08:59)
[2018-06-26] MEDS: IRBESARTAN PO SCH (08:59)
[2018-06-26] MEDS: HYDROCHLOROTHIAZIDE PO SCH (08:59)
[2018-06-26] MEDS: NEOMY/BACITRAC/POLYMI OINT 28.35 GM TUBE TOP SCH (08:59)
[2018-06-26] MEDS: THIAMINE HCL 100 MG TABLET PO SCH (09:00)
[2018-06-26] MEDS: FINASTERIDE 1 MG PO SCH (09:00)
[2018-06-26] MEDS: FOLIC ACID 1 MG TABLET PO SCH (09:00)
--- NOTE | 2018-06-26 09:00 | NUR ---
CIWA ASSESSMENT Patient in room,noted with flat/depressed affect and anxious mood. Encouraged to express self, and provided with calming reassurance as needed.Patient exhibiting the following s/sx of withdrawal: fine tremors, anxiety, fidgety, restlessness, agitation, generalized discomfort, increase emotional amplitude and emotional volatility, patient with CIWA score of: 8, all scheduled medications administered as ordered. Will continue to monitor.
[2018-06-26] MEDS: MIRALAX 17 GM POWD.PACK PO PRN (09:01)
--- NOTE | 2018-06-26 09:01 | NUR ---
PRN MIRALAX Patient reported constipation, administered miralax as ordered, will monitor effectiveness of medication.
[2018-06-26] MEDS: MULTIVITAMINS,THERAPEUTIC TABLET PO SCH (09:06)
[2018-06-26 12:28] VITALS: BP 156/89
--- NOTE | 2018-06-26 13:00 | NUR ---
CIWA ASSESSMENT Continues exhibiting the following s/sx of withdrawal: fine tremors, anxiety, fidgety, restlessness, agitation, generalized discomfort, increase emotional amplitude and emotional volatility, patient with CIWA score of: 6, will continue to monitor.
[2018-06-26] MEDS ORDERED: TRAZ-214 PO (13:51)
[2018-06-26] MEDS ORDERED: DIPH50CA37 PO (13:51)
[2018-06-26] MEDS ORDERED: CLON0.1T14 PO (13:51)
--- NOTE | 2018-06-26 16:27 | NUR ---
CIWA ASSESSMENT Noted presenting the following s/sx of withdrawal: fine tremors, anxiety, fidgety, restlessness, agitation, and generalized discomfort, patient with CIWA score of: 5, all scheduled medications administered as ordered. Will continue to monitor.
--- NOTE | 2018-06-26 16:29 | NUR ---
Therapist prompted client to attend twice daily group therapy sessions.
[2018-06-26 17:04] VITALS: BP 122/86
--- NOTE | 2018-06-26 17:32 | NUR ---
MIRALAX REASSESSMENT Medication effective patient had one bowel movement. Will continue to monitor.
--- NOTE | 2018-06-26 19:02 | NUR ---
END OF SHIFT Patient continues under very close observation, admitting Dx: etoh/bzo withdrawal. Patient completed a 5 day Valium taper as ordered, patient is scheduled to be discharged tomorrow morning. Patient noted self motivated towards sobriety. Picture of left elbow was taken and placed in chart. Patient exhibited the following s/sx of withdrawal: fine tremors, anxiety, fidgety, restlessness, agitation, generalized discomfort, increase emotional amplitude and emotional volatility, patient with last CIWA score of: 5, detox medication was effective at reducing withdrawal symptoms. Patient received PRN: Miralax for constipation, as requested. Patient noted with flat/depressed affect and anxious mood. Encouraged to express self, and provided with calming reassurance as needed. Patient encouraged diversional activities to alleviate anxiety. Encouraged to attend group therapies/sessions to learn new coping skills to prevent relapse. Encouraged to socialize with others. Patient endorsed to power and recovery shift engineer nurse, all pertinent information was discussed.
--- NOTE | 2018-06-26 19:45 | NUR ---
Start of Shift Note Received a 68 y/o male nirav, admitted for medically supervised withdrawal from ETOH and Klonopin. Px completed 5 day Valium taper started on 06/21/2018. Px is to be D/C tomorrow, 06/27/2018. Last reported CIWA 2 by AM shift nurse. During the rounds at 1945, nirav is awake on bed in fowlers position watching TV. Px appears anxious. Unfinished drinks noted on top of the bed side table. He stated that his anxiety is 2/10. Bilateral hand tremors noted. Px wanted to get Trazodone, Benadryl and Motrin tonight. Bed on lowest position, side rails up 2x, and call light within reach. We'll continue to monitor. Addendum: 06/26/18 at 2040 by MARGARITO HANNAH RN Last reported CIWA 5 by AM shift nurse
[2018-06-26 20:00] VITALS: BP 150/103
--- NOTE | 2018-06-26 20:00 | NUR ---
CIWA 9 Px appears anxious. Unfinished drinks noted on top of the bed side table. He stated that his anxiety is 2/10. Bilateral hand tremors noted. BP= 150/103. We'll continue to monitor.
[2018-06-26] MEDS: CLONIDINE HCL 0.1 MG TABLET PO PRN (20:21)
--- NOTE | 2018-06-26 20:21 | NUR ---
PRN Clonidine Px received Clonidine 0.1 mg PO for anxiety. To reassess after an hour.
[2018-06-26] MEDS: IBUPROFEN 600 MG TABLET PO PRN (22:03)
[2018-06-26] MEDS: TRAZODONE 100 MG TABLET PO PRN (22:03)
[2018-06-26] MEDS: diphenhydrAMINE 50 MG CAPSULE PO PRN (22:03)
--- NOTE | 2018-06-26 22:03 | NUR ---
PRN medications As requested, Px received Trazodone 100 mg PO and Benadryl 50 mg PO for insomnia. He also received Motrin 600 mg PO due to the bed is hard and gives him pain during the night. To reassess after an hour.
--- NOTE | 2018-06-26 23:03 | NUR ---
Reassessment of insomnia Px is still awake at this moment after an hour of giving Trazodone 100 mg PO and Benadryl 50 mg PO. Will continue to monitor.
[2018-06-26] MEDS ORDERED: HYDROXYZINE PAMOATE 25 MG CAPSULE PO ONE (23:45)
--- NOTE | 2018-06-26 23:55 | NUR ---
1x dose Vistaril Px is asking if he can take another Benadryl for insomnia. He received Vistaril 25 mg PO as 1x dose for anxiety. To reassess after an hour.
[2018-06-27] VITALS: BP 125/81
--- NOTE | 2018-06-27 | NUR ---
CIWA 9 Px is ready to go to sleep. He stated that his anxiety is still at 2/10. Bilateral hand tremors noted. BP= 125/81. We'll continue to monitor.
[2018-06-27 04:00] VITALS: BP 125/81
--- NOTE | 2018-06-27 04:00 | NUR ---
CIWA deferred CIWA deferred due to the px is asleep, to assess if the px is awake per doctor's order. We'll continue to monitor.
--- NOTE | 2018-06-27 07:05 | NUR ---
End of Shift Note Px is to be D/C today, 06/27/2018. During the shift at 2020, px received Clonidine 0.1 mg PO for anxiety. It was not effective. At 2202 px received Trazodone 100 mg PO and Benadryl 50mg PO for insomnia, Motrin 600 mg PO for pain produced by uncomfortable bed. They were not effective. At 2354, px received 1x order of Vistaril for anxiety. Px slept intermittently for total of 6 hours. Px oral intake 2000 ml, voided 4x, No BM. At 0630, px woke up to shave and take a shower. Last CIWA 9. Bed on lowest position, side rails up 2x and call light within reach. Px endorsed to AM shift nurse. Well continue to monitor.
--- NOTE | 2018-06-27 07:45 | NUR ---
BEGINNING OF SHIFT Patient currently received awake, alert and oriented x4. Educated patient regarding plan of care for the day and medication regimen, with good verbal understanding. Patient is scheduled to be discharged this morning, noted self motivated towards sobriety, Will educate patient regarding all discharge instructions. Patient endorsement report received from shift nurse manager nurse, all pertinent information was discussed. Admitting Dx: etoh withdrawal, completed 5 day Valium taper as ordered. As per shift nurse manager patient slept for 6 hours. Patient with last CIWA score of: 9. Received PRN: Trazodone, Motrin, and Benadryl. Per shift nurse manager medications effective. Safety measures are in place. call light with in reach, will continue to monitor.
[2018-06-27 08:18] VITALS: BP 143/79
[2018-06-27] MEDS: THIAMINE HCL 100 MG TABLET PO SCH (08:51)
[2018-06-27] MEDS: HYDROCHLOROTHIAZIDE PO SCH (08:51)
[2018-06-27] MEDS: FOLIC ACID 1 MG TABLET PO SCH (08:51)
[2018-06-27] MEDS: FINASTERIDE 1 MG PO SCH (08:51)
[2018-06-27] MEDS: IRBESARTAN PO SCH (08:51)
[2018-06-27] MEDS: MULTIVITAMINS,THERAPEUTIC TABLET PO SCH (08:51)
[2018-06-27] MEDS: NEOMY/BACITRAC/POLYMI OINT 28.35 GM TUBE TOP SCH (08:52)
[2018-06-27] MEDS: METRONIDAZOLE TOP SCH (08:52)
[2018-06-27] MEDS: [UNRECOGNIZED DRUG - OTHER] TOP SCH (08:53)
[2018-06-27] MEDS: TRETINOIN TOP SCH (08:53)
[2018-06-27] MEDS: MIRALAX 17 GM POWD.PACK PO PRN (08:53)
--- NOTE | 2018-06-27 09:27 | NUR ---
DISCHARGE Patient discharged off the unit at 0927 in stable condition and not in any apparent acute distress. Patient noted self motivated towards sobriety. Completed 5 day Valium taper as ordered. Patient received all scheduled medications prior to discharge. Patient received PRN Miralax at 0853 as requested for constipation. Patients vital signs WNL. patient with last CIWA score of: 5. Patient was educated and provided with teaching regarding all discharge instructions with good verbal understanding. Patients home medications, discharge instruction, and prescriptions were placed in patients personal duffel bag. patient off the unit in stable condition at 0927.
== END 2018-06-27 09:27 | DRG 895 ==
LOC: SRC 12:34
PROVIDERS: ADMIT Family Medicine Addiction Medicine; ATTEND Family Medicine Addiction Medicine
PROC: HZ2ZZZZ Detoxification Services for Substance Abuse Treatment (ICD-10-PCS; principal; 2018-06-20)
PROC: HZ41ZZZ Group Counseling for Substance Abuse Treatment, Behavioral (ICD-10-PCS; 2018-06-21)
DX: F10.230 Alcohol dependence with withdrawal, uncomplicated (principal); Y90.0 Blood alcohol level of less than 20 mg/100 ml; B00.9 Herpesviral infection, unspecified; Z79.899 Other long term (current) drug therapy; F17.210 Nicotine dependence, cigarettes, uncomplicated; S51.012D Laceration without foreign body of left elbow, subsequent encounter; W11.XXXD Fall on and from ladder, subsequent encounter; I10 Essential (primary) hypertension; F41.9 Anxiety disorder, unspecified; R74.0 Nonspecific elevation of levels of transaminase and lactic acid dehydrogenase [LDH]
CPT/HCPCS: 36415; 70030-TC; 80307; 83690; 83735; 85025; 86580; 86592; 86705; 86803; 87340; 87806; A4663; G0480; J3411; Q0163